=== PATIENT | female | born 1985 | race Caucasian/White ===

== ENCOUNTER 2016-12-27 09:44 | Emergency (ER) | payer BC ==
--- NOTE | 2016-12-27 11:09 | UC ---
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 HAS CONTINUED TO GO TO THE GYM AND WORK. PAIN IS PERSISTENT. DENIES NUMBNESS, TINGLING OR SADDLE ANESTHESIA. NO LOSS OF BOWEL OR BLADDER CONTROL. 800 MG IBUPROFEN, TYLENOL, ICY HOT NOT HELPING. - History of Current Complaint Chief Complaint: UCBackPain Stated Complaint: LOWER BACK INJURY Time Seen by Provider: 12/27/16 10:56 Hx Obtained From: Patient Hx Last Menstrual Period: 12/13/16 Onset/Duration: Sudden Onset, Lasting Days, Still Present Timing: Constant Severity Initially: Moderate Severity Currently: Moderate Pain Intensity: 9 Pain Scale Used: 0-10 Numeric Back Pain: Is Discrete @ - LOW BACK Character: Sharp, Aching Aggravating: Movement, Bending Alleviating: Rest Associated Signs And Symptoms: Negative: Swelling, Redness, Bruising, Fever, Numbness, Tingling, Abdominal Pain, Flank Pain, Bladder Incontinence, Bowel Incontinence - Allergies/Home Medications Allergies/Adverse Reactions: Allergies Allergy/AdvReac Type Severity Reaction Status Date / Time No Known Allergies Allergy Verified 12/27/16 10:12 Home Medications: Home Medications Norgestimate-Ethinyl Estradiol [Tri-Sprintec 0.18/0.215/0.25 mg-35 Mcg] 1 tab PO DAILY 12/27/16 [History Confirmed 12/27/16] PMH/Surg Hx/FS Hx/Imm Hx Previously Healthy: Yes - Surgical History Surgical History: None Surgery Procedure, Year, and Place: denies - Family History Known Family History: Negative: Hypertension Family History: NON CONTRIBUTORY - Social History Alcohol Use: Occasionally Substance Use Type: None Smoking Status (MU): Never Smoked Tobacco - Immunization History Most Recent Influenza Vaccination: 2014 Most Recent Tetanus Shot: UTD Review of Systems Constitutional: Negative Skin: Negative Respiratory: Negative Cardiovascular: Negative Gastrointestinal: Negative Musculoskeletal: Arthralgia, Decreased ROM, Myalgia All Other Systems Reviewed And Are Negative: Yes Physical Exam Triage Information Reviewed: Yes Appearance: Well-Appearing, No Pain Distress, Well-Nourished Vital Signs: Initial Vital Signs Temp 98.0 F 12/27/16 10:08 Pulse 78 12/27/16 10:08 Resp 16 12/27/16 10:08 BP 157/65 12/27/16 10:08 Pulse Ox 100 12/27/16 10:08 Vital Signs Reviewed: Yes Eyes: Positive: Conjunctiva Clear ENT: Positive: Hearing grossly normal Neck: Positive: Supple Respiratory: Positive: No respiratory distress, No accessory muscle use Cardiovascular: Positive: Pulses Normal Abdomen Description: Positive: Soft Musculoskeletal: Positive: No Edema, ROM Limited @ - BACK Neurological: Positive: Alert Psychological: Positive: Age Appropriate Behavior Skin: Negative: rashes Back Pain Course/Dx - Differential Dx/Diagnosis Provider Diagnoses: ACUTE LOW BACK STRAIN Discharge - Discharge Plan Condition: Stable Disposition: HOME Prescriptions: Cyclobenzaprine TAB* [Flexeril TAB*] 10 mg PO BID PRN #30 tab PRN Reason: Pain Hydrocodone-Acetaminophen [Lorcet 5-325 mg] 1 tab PO QID PRN #20 tab MDD 4 PRN Reason: Pain Meloxicam [Mobic] 7.5 mg PO BID PRN #30 tab PRN Reason: Pain predniSONE TAB* [Deltasone TAB*] 40 mg PO DAILY #10 tab Patient Education Materials: Low Back Strain (ED) Referrals: Simba Reyes MD [Primary Care Provider] - If Needed Additional Instructions: BE SURE TO GO THROUGH SLOW RANGE OF MOTION AND STRETCHING EXERCISES DAILY YOU ARE ABLE TO PREVENT STIFFENING UP AND MAKING THE DISCOMFORT WORSE.
== END 2016-12-27 11:20 | disposition home or self-care (01) ==
LOC: UCEAST 09:44
DX: S39.012A Strain of muscle, fascia and tendon of lower back, initial encounter (principal); X50.0XXA Overexertion from strenuous movement or load, initial encounter; Y93.E2 Activity, laundry; Y92.019 Unspecified place in single-family (private) house as the place of occurrence of the external cause; Y99.9 Unspecified external cause status
CPT/HCPCS: 99212; G0463

== ENCOUNTER → 2017-08-31 08:33 | Emergency (ER) | payer BC ==
[2017-08-31 08:44] VITALS: BP 127/83
--- NOTE | 2017-08-31 09:11 | UC ---
Complaint Female HPI - HPI Summary HPI Summary: 31 yo female has not felt right ("down there") for about a month was treated for a UTI a month ago with a three day coarse of antibotics since then has had mild dyspareunia had a bit diarrhea and nausea last week now with right sided pelvic pain x 3 days no vag d/c or itch no f/c no back pain mild intermittent dysuria pain is mild no increased pain with jumping/walking/movement - History Of Current Complaint Chief Complaint: UCAbdominalPain Stated Complaint: LOWER PELVIC PAIN Time Seen by Provider: 08/31/17 09:03 Hx Obtained From: Patient Hx Last Menstrual Period: 08/24/17 Onset/Duration: Gradual Onset, Lasting Days Timing: Constant Severity Initially: Mild Severity Currently: Mild Pain Intensity: 3 Pain Scale Used: 0-10 Numeric Character: Dull Aggravating Factor(s): [place] Alleviating Factor(s): Nothing Associated Signs And Symptoms: Negative: Fever, Back Pain, Vaginal Bleeding/ Discharge, Vaginal Discharge, Nausea, Vomiting(# Of Episodes =), Genital Swelling, Genital Blisters, Retained Foregin Body (Specify) - Allergies/Home Medications Allergies/Adverse Reactions: Allergies Allergy/AdvReac Type Severity Reaction Status Date / Time No Known Allergies Allergy Verified 08/31/17 08:39 Home Medications: Home Medications Norgestimate-Ethinyl Estradiol [Tri-Sprintec Tablet] 1 tab PO DAILY 08/31/17 [ History Confirmed 08/31/17] PMH/Surg Hx/FS Hx/Imm Hx Previously Healthy: Yes - Surgical History Surgical History: None Surgery Procedure, Year, and Place: denies - Family History Known Family History: Negative: Hypertension Family History: NON CONTRIBUTORY - Social History Alcohol Use: Occasionally Substance Use Type: None Smoking Status (MU): Never Smoked Tobacco - Immunization History Most Recent Influenza Vaccination: 2014 Most Recent Tetanus Shot: UTD Review of Systems Constitutional: Negative Skin: Negative Eyes: Negative ENT: Negative Respiratory: Negative Cardiovascular: Negative Gastrointestinal: Negative Genitourinary: Other - right pelvic pain Motor: Negative Neurovascular: Negative Musculoskeletal: Negative Neurological: Negative Psychological: Negative Is Patient Immunocompromised?: No All Other Systems Reviewed And Are Negative: Yes Physical Exam Triage Information Reviewed: Yes Appearance: Well-Appearing, No Pain Distress, Well-Nourished Vital Signs: Initial Vital Signs Temp 97.6 F 08/31/17 08:41 Pulse 78 08/31/17 08:41 Resp 16 08/31/17 08:41 BP 127/83 08/31/17 08:41 Pulse Ox 100 08/31/17 08:41 Eye Exam: Normal ENT: Positive: Normal ENT inspection, Hearing grossly normal, Pharynx normal. Negative: Nasal drainage, TMs normal, TM bulging, Sinus tenderness, Uvula midline Neck: Positive: Supple, Nontender, No Lymphadenopathy Respiratory: Positive: Lungs clear, Normal breath sounds, No respiratory distress, No accessory muscle use Cardiovascular: Positive: RRR, No Murmur Abdomen Description: Positive: Nontender, No Organomegaly, Soft. Negative: CVA Tenderness (R), CVA Tenderness (L), Distended, Guarding, Hernia @, Hepatomegaly , McBurney's Point Tenderness, Peritoneal Signs, Pulsatile Mass, Splenomegaly Musculoskeletal: Positive: ROM Intact, No Edema Neurological: Positive: Alert Psychological Exam: Normal Skin Exam: Normal Diagnostics - Radiology No standard instances Xray Interpretation: No Acute Changes Radiology Interpretation Completed By: Radiologist Complaint Female Dx - Course Course Of Treatment: speculum exam: ext gent- no lesions. vagina- mild to moderate whitish D/C. cx- no CMT. adenexa- tender right. uterus- non tender - Differential Dx/Diagnosis Provider Diagnoses: right sided pelvic pain of uncertain cause Discharge - Discharge Plan Condition: Stable Disposition: HOME Patient Education Materials: Pelvic Pain (ED) Referrals: Marleni Wills MD [Medical Doctor] - If Needed Additional Instructions: various tests are pending including a urine culture and tests on you vaginal swabs I an unsure of the cause of your pain I suggest that if it worsens you go to the ER -increased pain -fever -vomiting recheck later this week if not better -here [facility]
--- NOTE | 2017-08-31 10:35 | RAD ---
Indication: RIGHT side pelvic pain for 5 days. Comparison: No relevant prior exams available on the [facility] for comparison. Technique: Transvaginal pelvic ultrasound. Report: 8.1 x 3.5 x 3.7 cm anteverted uterus with 5 mm endometrium. Trace fluid in the endocervical canal. No appreciable free pelvic fluid evident. 2.1 x 1.1 x 1.9 cm RIGHT ovary with documented vascular flow is unremarkable. 2.0 x 1.1 x 0.9 cm LEFT ovary with documented vascular flow is unremarkable. No visualized extra ovarian adnexal region lesions evident. IMPRESSION: Negative pelvic ultrasound.
== END | disposition home or self-care (01) ==
LOC: UCEAST 08:33
DX: R10.2 Pelvic and perineal pain (principal); R30.0 Dysuria; Z32.02 Encounter for pregnancy test, result negative; Z87.440 Personal history of urinary (tract) infections
CPT/HCPCS: 76830; 81003; 81025; 87086; 87480; 87491; 87510; 87591; 87661; 99211; G0463

== ENCOUNTER 2017-09-26 07:04 | Emergency (ER) | payer BC ==
[2017-09-26 07:31] VITALS: BP 139/86
--- NOTE | 2017-09-26 08:56 | RAD ---
HISTORY: Abdominal pain COMPARISONS: None VIEWS: Frontal views of the abdomen. FINDINGS: BOWEL: There is a nonobstructive bowel gas pattern. There is a large amount stool within the proximal and distal colon. CALCULI: There are no abnormal calculi. BONES AND SOFT TISSUES: There are no osseous abnormalities. OTHER FINDINGS: The lung bases are clear. There is no subphrenic gas. Metallic jewelry is noted overlying the mid abdomen. IMPRESSION: NONOBSTRUCTIVE BOWEL GAS PATTERN.
--- NOTE | 2017-09-26 10:00 | UC ---
Lauri Dominguez Jennifer, scribed for Rayne Uriarte DO on 09/26/17 at 0810 . Complaint Female HPI - HPI Summary HPI Summary: The pt is a 32 y/o female who complains of pelvic pain that radiates to her right abdomen and both sides of her back since one month ago. Pt reports she was at Urgent Care for pelvic pain one month ago but the transvaginal ultrasound was negative. The pain persisted and never resolved. Pt reports she had a UTI a few days ago and wonders if this is a kidney infection. The pain is rated a 4/10 and is described as a dull, jabbing pain. Sitting and standing aggravate the pain, but she does not notice it when she is walking or lying down. She additionally complains of dysuria, increased frequency of urination, intermittent diarrhea, feeling gassy, and nausea. Pt denies fevers, blood in the stool, discharge, chest pain, shortness of breath, and recent weight loss. - History Of Current Complaint Chief Complaint: UCGU Stated Complaint: BACK PAIN, FREQUENT URINATION Time Seen by Provider: 09/26/17 07:10 Hx Obtained From: Patient Hx Last Menstrual Period: 1 WEEK AGO - IS ON CONTROL PILLS Onset/Duration: Gradual Onset, Still Present, Other - Constant pain for one month Timing: Constant Severity Initially: Moderate Severity Currently: Moderate Pain Intensity: 4 Pain Scale Used: 0-10 Numeric Character: Dull Aggravating Factor(s): Other - Sitting, standing Alleviating Factor(s): Other - walking, lying down Associated Signs And Symptoms: Positive: Back Pain, Nausea. Negative: Fever, Vaginal Discharge - Allergies/Home Medications Allergies/Adverse Reactions: Allergies Allergy/AdvReac Type Severity Reaction Status Date / Time No Known Allergies Allergy Verified 09/26/17 07:22 PMH/Surg Hx/FS Hx/Imm Hx Previously Healthy: Yes - NEG: HTN, DM - Surgical History Surgical History: None Surgery Procedure, Year, and Place: denies - Family History Known Family History: Positive: Cardiac Disease - Father of heart attack Negative: Hypertension Family History: NON CONTRIBUTORY - Social History Alcohol Use: Occasionally Substance Use Type: None Smoking Status (MU): Never Smoked Tobacco - Immunization History Most Recent Influenza Vaccination: 2014 Most Recent Tetanus Shot: UTD Review of Systems Constitutional: Negative - Fever Respiratory: Negative - shortness of breath Cardiovascular: Negative - Chest pain Gastrointestinal: Abdominal Pain, Diarrhea - Intermittent, Nausea, Other - Feeling gassy Genitourinary: Negative - Vaginal discharge, blood in stool, Dysuria, Frequency Musculoskeletal: Other: - Back pain All Other Systems Reviewed And Are Negative: Yes Physical Exam - Summary Physical Exam Summary: Appearance: Well-Appearing, No Pain Distress, Well-Nourished Eyes: conjunctiva clear, no discharge ENT: Hearing grossly normal, no muffled/hoarse voice. Neck: Normal, Supple Respiratory/Lung Sounds: Lungs clear, Normal breath sounds, No respiratory distress, No accessory muscle use Cardiovascular: RRR, No murmur Abdomen: minimal tenderness in RUQ, mild tenderness in LLQ and suprapubic region , RLQ was palpated extensively with no tenderness. Soft, no guarding, not distended Bowel Sounds: Present Musculoskeletal: Normal Neurological: Alert, muscle tone normal Psychiatric:Normal, age appropriate behavior Skin: Normal, Warm, Dry, Normal color Triage Information Reviewed: Yes Vital Signs: Initial Vital Signs Temp 98.6 F 09/26/17 07:23 Pulse 80 09/26/17 07:23 Resp 16 09/26/17 07:23 BP 139/86 09/26/17 07:23 Pulse Ox 100 09/26/17 07:23 Vital Signs Reviewed: Yes Diagnostics - Radiology Abd XR Xray Interpretation: No Acute Changes - NONOBSTRUCTIVE BOWEL GAS PATTERN. Dr. Uriarte has reviewed this report. Radiology Interpretation Completed By: Radiologist Complaint Female Dx - Course Course Of Treatment: Patient will be discharged with prescription for Macrodantin and follow up from PCP. The patient is agreeable with this plan. Medications reviewed. High blood pressure noted. - Differential Dx/Diagnosis Provider Diagnoses: Elevated blood pressure without diagnosis of hypertension, Constipation, Diarrhea Discharge - Discharge Plan Condition: Stable Disposition: HOME Prescriptions: Nitrofurantoin Macrocrystals* [Macrodantin*] 100 mg PO BID #10 cap Patient Education Materials: Constipation (DC), Dysuria (ED) [place] [facility] [place] [facility] [place]] Additional Instructions: WE ARE NOT SURE WHETHER OR NOT YOU HAVE AN INFECTION. THE URINE DIP DONE HERE IN THE CLINIC DID NOT REVEAL EVIDENCE OF INFECTION. HOWEVER, WE ARE GOING TO GO AHEAD AND START TO TREAT YOU FOR A UTI BECAUSE YOU HAVE PAIN WITH URINATION BECAUSE YOU HAVE SOME PAIN WITH URINATION. WE ARE SENDING YOUR URINE FOR MICROSCOPY AND CULTURE TO GET A DEFINITIVE ANSWER. PLEASE CALL BACK AND CHECK ON THESE RESULTS. IF THESE TESTS RULE OUT INFECTION. STOP TAKE THE ANTIBIOTIC. NITROFURANTOIN: You have received a prescription for nitrofurantoin (Macrodantin). This antibiotic is used for urinary tract infections. Persons with G-6-PD (glucose 6-phosphate dehydrogenase) deficiency should not take this medication. Women who are or nursing should notify the physician before taking this medicine. If you have ever had a problem caused by this medication in the past, be sure the physician is aware of it. Common side effects of this medicine include nausea, vomiting, or decreased appetite. Notify your physician if these side effects become severe. Immediately stop this medicine and call the physician if you develop cough , shortness of breath, chest pain, weakness, jaundice (yellow color of the skin and whites of the eyes), or a skin rash. ANYTIME YOU TAKE AN ANTIBIOTIC, IT IS IMPORTANT TO REPLENISH THE BODY'S SUPPLY OF "GOOD BACTERIA." YOU CAN GET GOOD BACTERIA FROM HIGH QUALITY CULTURED FOODS SUCH LOCAL YOGURT, SOUR KRAUT, REGINA HUGH, NATURALLY FERMENTED PICKLES AND PROBIOTIC DRINKS. YOU CAN ALSO GET GOOD BACTERIA FROM A PROBIOTIC SUPPLEMENT. The documentation as recorded by the Lauri aranda Jennifer accurately reflects the service I personally performed and the decisions made by me, Rayne Uriarte DO.
[2017-09-26 14:39] LABS: Urine Appearance Clear; Urine Blood Negative (Negative); Urine Color Yellow; Urine Ketones Negative (Negative); Urine Protein Negative (Negative); Urine Specific Gravity 1.015 (1.010-1.030); Urine Urobilinogen Negative (Negative)
--- NOTE | 2017-09-28 10:39 | UC ---
- Progress Note Progress Note: please call this pt and let her know that here urine cx was neg. no uti. ok to stop abx.
== END 2017-09-26 09:30 | disposition home or self-care (01) ==
LOC: UCEAST 07:04
DX: K59.00 Constipation, unspecified (principal); R19.7 Diarrhea, unspecified; R03.0 Elevated blood-pressure reading, without diagnosis of hypertension; R30.0 Dysuria; R35.0 Frequency of micturition; R11.0 Nausea; Z87.440 Personal history of urinary (tract) infections; Z32.02 Encounter for pregnancy test, result negative
CPT/HCPCS: 74018; 81003; 84702; 87086; 99212; G0463

== ENCOUNTER 2018-05-17 07:33 | Emergency (ER) | payer BC ==
[2018-05-17 07:50] VITALS: BP 144/89
--- NOTE | 2018-05-17 08:12 | UC ---
Complaint Female HPI - HPI Summary HPI Summary: 32-year-old woman comes to clinic today with a chief complaint of dysuria. Started about a week ago. [facility] ago and was told she has UTI and was started on Bactrim. The symptoms have not gotten any better. She has been taking Pyridium which decreased the symptoms however she stopped because he wanted to make sure she knew if the urinary tract infection with away or not. No fevers or chills. She has urgency and frequency. Some suprapubic discomfort no flank pain. She does get vaginal yeast infection since she feels like she has one now. She denies any STI's and was recently checked at [facility] for STI's. - History Of Current Complaint Chief Complaint: UCGU Stated Complaint: UTI Time Seen by Provider: 05/17/18 07:57 Hx Last Menstrual Period: 04/29/18 Pain Intensity: 5 - Allergies/Home Medications Allergies/Adverse Reactions: Allergies Allergy/AdvReac Type Severity Reaction Status Date / Time No Known Allergies Allergy Verified 05/17/18 07:50 Home Medications: Home Medications Sulfamethox/Trimethoprim DS* [Bactrim DS 800/160 TAB*] 1 tab PO BID 05/17/18 [ History Confirmed 05/17/18] PMH/Surg Hx/FS Hx/Imm Hx Previously Healthy: Yes - Surgical History Surgical History: None Surgery Procedure, Year, and Place: denies - Family History Known Family History: Positive: Cardiac Disease - Father of heart attack Negative: Hypertension, Diabetes Family History: NON CONTRIBUTORY - Social History Alcohol Use: Occasionally Substance Use Type: None Smoking Status (MU): Never Smoked Tobacco - Immunization History Most Recent Influenza Vaccination: 2014 Most Recent Tetanus Shot: UTD Review of Systems Constitutional: Negative Skin: Negative Eyes: Negative ENT: Negative Respiratory: Negative Cardiovascular: Negative Gastrointestinal: Negative Genitourinary: Dysuria, Frequency, Urgency, Vaginal/Penile Discharge Motor: Negative Neurovascular: Negative Musculoskeletal: Negative Neurological: Negative Psychological: Negative Is Patient Immunocompromised?: No All Other Systems Reviewed And Are Negative: Yes Physical Exam Triage Information Reviewed: Yes Appearance: Well-Appearing, No Pain Distress, Well-Nourished Vital Signs: Initial Vital Signs Temp 99 F 05/17/18 07:43 Pulse 68 05/17/18 07:43 Resp 18 05/17/18 07:43 BP 144/89 10/29/18 07:43 Pulse Ox 100 05/17/18 07:43 Vital Signs Reviewed: Yes Eye Exam: Normal Eyes: Positive: Conjunctiva Clear ENT: Negative: Nasal congestion Neck exam: Normal Neck: Positive: Supple Respiratory Exam: Normal Respiratory: Positive: Lungs clear, Normal breath sounds, No respiratory distress Cardiovascular: Positive: RRR Abdomen Description: Positive: Nontender, Soft. Negative: CVA Tenderness (R), CVA Tenderness (L) Bowel Sounds: Positive: Present Musculoskeletal Exam: Normal Musculoskeletal: Positive: Strength Intact, ROM Intact Neurological Exam: Normal Neurological: Positive: Alert, Muscle Tone Normal Psychological Exam: Normal Psychological: Positive: Age Appropriate Behavior Skin Exam: Normal Complaint Female Dx - Course Course Of Treatment: The UA showed some leukocytes. Different possibilities include the back daily for the UTI is resistant to Bactrim versus the symptoms are due to vaginal yeast infection or a combination of both. The plan is to switch to Keflex and also treat with Diflucan. Get rechecked if not improved. Also urine will go to culture today. Patient recently was checked for STI's and does not have any concerns of STI's therefore no pelvic was done today. - Differential Dx/Diagnosis Provider Diagnoses: UTI. VAGINITIS Discharge - Sign-Out/Discharge Documenting (check all that apply): Patient Departure All imaging exams completed and their final reports reviewed: No Studies - Discharge Plan Condition: Stable Disposition: HOME Prescriptions: Cephalexin CAP* [Keflex CAP*] 500 mg PO TID #21 cap Fluconazole [Diflucan 150 MG (NF)] 150 mg PO ONCE #2 tab Patient Education Materials: Urinary Tract Infection in Women (ED), Yeast Infection (ED) Referrals: [facility] [place] [facility] [Outside] Additional Instructions: FOLLOW UP WITH YOUR DOCTOR IF NOT COMPLETELY IMPROVED. GET RECHECKED FOR ANY WORSENING OF YOUR CONDITION OR QUESTIONS OR CONCERNS. - Billing Disposition and Condition Condition: STABLE Disposition: Home
--- NOTE | 2018-05-18 10:13 | UC ---
- Progress Note Progress Note: Pt called and said that she is having diarrhea from the Keflex. According to the office note, [facility] which did not resolve with B[facility]rim and was then switched to Keflex at her visit at under the assumption that her UTI may have been resistant to Bactrim. Given her antibiotic use over the last week - this could be why her urine culture is negative, but she is still having symptoms. Will switch her to Cipro BID for 5 days. STOP keflex. If her symptoms do not improve - will need to follow up. Please advise to take an OTC probiotic to reduce diarrhea. Discharge - Sign-Out/Discharge Documenting (check all that apply): Patient Departure All imaging exams completed and their final reports reviewed: No Studies - Discharge Plan Condition: Stable Disposition: HOME Prescriptions: Ciprofloxacin TAB* [Cipro 250 MG Tab*] 250 mg PO BID #10 tab Fluconazole [Diflucan 150 MG (NF)] 150 mg PO ONCE #2 tab Patient Education Materials: Urinary Tract Infection in Women (ED), Yeast Infection (ED) Referrals: [facility] [place] [facility] [Outside] Additional Instructions: FOLLOW UP WITH YOUR DOCTOR IF NOT COMPLETELY IMPROVED. GET RECHECKED FOR ANY WORSENING OF YOUR CONDITION OR QUESTIONS OR CONCERNS. - Billing Disposition and Condition Condition: STABLE Disposition: Home
--- NOTE | 2018-05-18 16:39 | UC ---
- Progress Note Progress Note: reviewed urine culture no change ljj 05/18/2018 Discharge - Sign-Out/Discharge Documenting (check all that apply): Post-Discharge Follow Up All imaging exams completed and their final reports reviewed: No Studies - Discharge Plan Condition: Stable Disposition: HOME Prescriptions: Ciprofloxacin TAB* [Cipro 250 MG Tab*] 250 mg PO BID #10 tab Fluconazole [Diflucan 150 MG (NF)] 150 mg PO ONCE #2 tab Patient Education Materials: Urinary Tract Infection in Women (ED), Yeast Infection (ED) Referrals: [facility] [place] [facility] [Outside] Additional Instructions: FOLLOW UP WITH YOUR DOCTOR IF NOT COMPLETELY IMPROVED. GET RECHECKED FOR ANY WORSENING OF YOUR CONDITION OR QUESTIONS OR CONCERNS. - Billing Disposition and Condition Condition: STABLE Disposition: Home
== END 2018-05-17 08:15 | disposition home or self-care (01) ==
LOC: UCEAST 07:33
DX: N39.0 Urinary tract infection, site not specified (principal); N76.0 Acute vaginitis
CPT/HCPCS: 81003; 84702; 87086; 99212; G0463

== ENCOUNTER 2018-05-29 08:59 | Emergency (ER) | payer BC ==
[2018-05-29 09:09] VITALS: BP 128/84
--- NOTE | 2018-05-29 10:12 | UC ---
Complaint Female HPI - HPI Summary HPI Summary: 32 year old female is here with a chief complaint of dysuria. This all started couple weeks ago. [facility] where [facility] reported she [facility] examination told that she had a urinary tract infection and started her on Bactrim. She is not improving and she came here to clinic and a urine culture was obtained and the patient was started on Keflex and Diflucan. The urine culture came back with no growth. She did get some diarrhea the Keflex was prescribed Cipro but she preferred to not take the Cipro and just continued and finished the Keflex. Dysuria is still continuing. Patient denies any vaginal discharge. She has not had intercourse since the pain started. She is having some bilateral lower anterior abdominal discomfort and also bilateral flank pain. Overnight she has some chills but no measured fevers. She is on her period right now. - History Of Current Complaint Chief Complaint: UCGU Stated Complaint: PAIN/FREQUENCY WITH MICTURITION Time Seen by Provider: 05/29/18 09:46 Hx Last Menstrual Period: 05/27/18 Pain Intensity: 3 - Allergies/Home Medications Allergies/Adverse Reactions: Allergies Allergy/AdvReac Type Severity Reaction Status Date / Time No Known Allergies Allergy Verified 05/29/18 09:09 PMH/Surg Hx/FS Hx/Imm Hx Previously Healthy: Yes - Surgical History Surgical History: None Surgery Procedure, Year, and Place: denies - Family History Known Family History: Positive: Cardiac Disease - Father of heart attack Negative: Hypertension, Diabetes Family History: NON CONTRIBUTORY - Social History Alcohol Use: Occasionally Substance Use Type: None Smoking Status (MU): Never Smoked Tobacco - Immunization History Most Recent Influenza Vaccination: 2014 Most Recent Tetanus Shot: UTD Review of Systems All Other Systems Reviewed And Are Negative: Yes Constitutional: Positive: Negative Skin: Positive: Negative Eyes: Positive: Negative ENT: Positive: Negative Respiratory: Positive: Negative Cardiovascular: Positive: Negative Gastrointestinal: Positive: Abdominal Pain Genitourinary: Positive: Dysuria, Frequency, Urgency Motor: Positive: Negative Neurovascular: Positive: Negative Musculoskeletal: Positive: Negative Neurological: Positive: Negative Psychological: Positive: Negative Is Patient Immunocompromised?: No Physical Exam Triage Information Reviewed: Yes Appearance: Well-Appearing, No Pain Distress, Well-Nourished Vital Signs: Initial Vital Signs Temp 98.5 F 05/29/18 09:06 Pulse 75 05/29/18 09:06 Resp 16 05/29/18 09:06 BP 128/84 05/29/18 09:06 Pulse Ox 100 05/29/18 09:06 Vital Signs Reviewed: Yes Eye Exam: Normal Eyes: Positive: Conjunctiva Clear Neck exam: Normal Neck: Positive: Supple Respiratory Exam: Normal Respiratory: Positive: Lungs clear, Normal breath sounds, No respiratory distress Cardiovascular Exam: Normal Cardiovascular: Positive: RRR Abdomen Description: Positive: CVA Tenderness (R) - MILD, CVA Tenderness (L) - MILD, Other: - Mild tenderness to palpation right lower quadrant and left lower quadrant there is no tenderness suprapubic. No rebound Bowel Sounds: Positive: Present Pelvic Exam: Positive: External Exam Normal, Bimanual Exam Normal, No Cerv. Motion Tender, No Masses, Active Bleeding - patient on menses, Other - TTP over suprapubic theodora, 2 small petechia noted on cervix ~ 2, 4 region no strawberry cervix, not friable. Negative: Cervicitis, Discharge, Lesions, Mass, Tender w/ Cervical Motion, Tender Adnexa, Tender Uterus Musculoskeletal Exam: Normal Musculoskeletal: Positive: Strength Intact, ROM Intact Neurological Exam: Normal Neurological: Positive: Alert, Muscle Tone Normal Psychological Exam: Normal Psychological: Positive: Age Appropriate Behavior Skin Exam: Normal Complaint Female Dx - Course Course Of Treatment: The patient is well appearing the pain is mild. We discussed going to the emergency department where they can do imaging and blood work right away. We do not have ultrasound or CT here today clinic. Patient prefers not to go to the emergency department. The plan is to do a pelvic exam here in clinic and send for vaginal infections and also repeat the urine with urine culture. We will also do lab work CBC CMP and CRP. If we find a treatable answer we will treat as indicated. If the patient is not improved or worse she indicated she like to come back when we do have ultrasound and CT. At that time will need to determine if CT to look for kidney stone on ultrasound to look for uterine cause of the pain is indicated. Patient does go the emergency department if her condition worsens. She does not have a primary care physician at this time and it would be good for her to get a primary care physician for follow-up. - Differential Dx/Diagnosis Provider Diagnoses: DYSURIA Discharge - Sign-Out/Discharge Documenting (check all that apply): Patient Departure All imaging exams completed and their final reports reviewed: No Studies - Discharge Plan Condition: Stable Disposition: HOME Patient Education Materials: Dysuria (ED) Referrals: Simba Reyes MD [Primary Care Provider] - Additional Instructions: FOLLOW UP WITH YOUR DOCTOR. GO TO THE EMERGENCY DEPARTMENT FOR ANY WORSENING OF YOUR CONDITION; PAIN, FEVER , YOU FEEL ILL OR QUESTIONS OR CONCERNS. - Billing Disposition and Condition Condition: STABLE Disposition: Home
[2018-05-29 15:01] LABS: ABS Basophils 0.1 10^3/ul (0-0.2); ABS Eosinophils 0.1 10^3/ul (0-0.6); ABS Lymphocytes 1.9 10^3/ul (1.0-4.8); ABS Monocytes 0.6 10^3/ul (0-0.8); ABS Neutrophils 4.8 10^3/ul (1.5-7.7); ABS Nucleated RBC 0 10^3/ul; Eosinophil % 1.8 % (0-6); Hematocrit 42 % (35-47); Hemoglobin 13.9 g/dl (12.0-16.0); Lymphocyte % 24.9 % (25-47); Mean Corpuscular HGB Conc 33 g/dl (31-36); Mean Corpuscular Hemoglobin 31 pg (27-31); Mean Corpuscular Volume 92 fL (80-97); Mean Platelet Volume 7.9 fL (7.4-10.4); Nucleated Red Blood Cells % 0.1; Platelet Count 311 10^3/ul (150-450); Red Blood Count 4.55 10^6/ul (4.00-5.40); Red Cell Distribution Width 14 % (10.5-15); White Blood Count 7.5 10^3/ul (3.5-10.8)
== END 2018-05-29 10:43 | disposition home or self-care (01) ==
LOC: UCEAST 08:59
DX: R30.0 Dysuria (principal); R10.9 Unspecified abdominal pain; R35.0 Frequency of micturition; R39.15 Urgency of urination
CPT/HCPCS: 36415; 80053; 81003; 84702; 85025; 86140; 87086; 87480; 87491; 87510; 87591; 99212; G0463

== ENCOUNTER 2018-05-31 07:06 | Emergency (ER) | payer BC ==
[2018-05-31 07:20] VITALS: BP 137/89
--- NOTE | 2018-05-31 07:40 | UC ---
Complaint Female HPI - HPI Summary HPI Summary: The patient is a 32-year-old female that has had dysuria urgency and frequency for approximately 3 weeks. She has been seen on multiple occasions both here and at [facility]. Her urine cultures have been negative. She has had pelvic exams performed and no cause for her dysuria has been found. He was seen here over the weekend and told to come here for imaging this morning. He denies any fever or chills. She denies any vaginal discharge or itch. Denies any back pain or abdominal pain. - History Of Current Complaint Chief Complaint: UCGU Stated Complaint: PAIN W/ MICTURITION Time Seen by Provider: 05/31/18 07:16 Hx Obtained From: Patient Hx Last Menstrual Period: 05/27/18 Timing: Intermittent, Lasting Minutes Severity Initially: Mild Severity Currently: None Pain Intensity: 0 - pain only with urination Pain Scale Used: 0-10 Numeric Character: Burning Aggravating Factor(s): Urination Alleviating Factor(s): Nothing Associated Signs And Symptoms: Negative: Fever, Back Pain, Vaginal Bleeding/ Discharge, Vaginal Discharge, Nausea, Vomiting(# Of Episodes =), Genital Swelling, Genital Blisters, Retained Foregin Body (Specify) Related Hx: Similar Episode/Dx as: - had [place] UTI - Allergies/Home Medications Allergies/Adverse Reactions: Allergies Allergy/AdvReac Type Severity Reaction Status Date / Time No Known Allergies Allergy Verified 05/31/18 07:20 PMH/Surg Hx/FS Hx/Imm Hx Previously Healthy: Yes - Surgical History Surgical History: None Surgery Procedure, Year, and Place: denies - Family History Known Family History: Positive: Cardiac Disease - Father of heart attack Negative: Hypertension, Diabetes Family History: NON CONTRIBUTORY - Social History Alcohol Use: Occasionally Substance Use Type: None Smoking Status (MU): Never Smoked Tobacco - Immunization History Most Recent Influenza Vaccination: 2014 Most Recent Tetanus Shot: UTD Review of Systems All Other Systems Reviewed And Are Negative: Yes Constitutional: Positive: Negative Skin: Positive: Negative Eyes: Positive: Negative ENT: Positive: Negative Respiratory: Positive: Negative Cardiovascular: Positive: Negative Gastrointestinal: Positive: Negative Genitourinary: Positive: Dysuria Motor: Positive: Negative Neurovascular: Positive: Negative Musculoskeletal: Positive: Negative Neurological: Positive: Negative Psychological: Positive: Negative Physical Exam Triage Information Reviewed: Yes Appearance: Well-Appearing, No Pain Distress, Well-Nourished Vital Signs: Initial Vital Signs Temp 98.4 F 05/31/18 07:14 Pulse 69 05/31/18 07:14 Resp 18 05/31/18 07:14 BP 137/89 05/31/18 07:14 Pulse Ox 98 05/31/18 07:14 Vital Signs Reviewed: Yes Eyes: Positive: Conjunctiva Clear ENT: Positive: Hearing grossly normal. Negative: Nasal congestion, Nasal drainage, Trismus, Muffled voice, Hoarse voice, Sinus tenderness, Uvula midline Neck: Positive: Supple, Nontender, No Lymphadenopathy Respiratory: Positive: Lungs clear, Normal breath sounds, No respiratory distress, No accessory muscle use Cardiovascular: Positive: RRR, No Murmur Abdomen Description: Positive: Nontender, No Organomegaly, Soft. Negative: CVA Tenderness (R), CVA Tenderness (L) Musculoskeletal: Positive: ROM Intact, No Edema Neurological: Positive: Alert Psychological Exam: Normal Skin Exam: Normal Diagnostics - Radiology No standard instances Radiology Interpretation Completed By: Radiologist Summary of Radiographic Findings: normal u/s of bladder Complaint Female Dx - Differential Dx/Diagnosis Provider Diagnoses: dysuria of uncertain cause Discharge - Sign-Out/Discharge Documenting (check all that apply): Patient Departure All imaging exams completed and their final reports reviewed: Yes - Discharge Plan Condition: Stable Disposition: HOME Patient Education Materials: Dysuria (ED) Referrals: Simba Reyes MD [Primary Care Provider] - If Needed Bro Herzog MD [Medical Doctor] - 1 Week Additional Instructions: further urine tests are pending if nothing turns up with those tests I suggest you see a specialist to ER for new or worsening symptoms - Billing Disposition and Condition Condition: STABLE Disposition: Home
--- NOTE | 2018-06-02 17:15 | UC ---
- Progress Note Progress Note: 06/02/2018 Urine Mycoplasm and Ureplasm are negative Pt was Dx w/ dyuria of unknown origen. No change Sandra Vila PA-C Discharge - Sign-Out/Discharge Documenting (check all that apply): Patient Departure - D/c home All imaging exams completed and their final reports reviewed: Yes - Discharge Plan Condition: Stable Disposition: HOME Patient Education Materials: Dysuria (ED) Referrals: Simba Reyes MD [Primary Care Provider] - If Needed Bro Herzog MD [Medical Doctor] - 1 Week Additional Instructions: further urine tests are pending if nothing turns up with those tests I suggest you see a specialist to ER for new or worsening symptoms - Billing Disposition and Condition Condition: STABLE Disposition: Home
== END 2018-05-31 09:23 | disposition home or self-care (01) ==
LOC: UCEAST 07:06
DX: R30.0 Dysuria (principal)
CPT/HCPCS: 76857; 87798; 99211; G0463

== ENCOUNTER 2018-09-03 04:54 | Emergency (ER) | payer BC ==
[2018-09-03 04:58] VITALS: BP 143/86
== END 2018-09-03 06:11 | disposition left against medical advice (07) ==
LOC: ED 04:54
DX: R07.89 Other chest pain (principal); Z53.21 Procedure and treatment not carried out due to patient leaving prior to being seen by health care provider

== ENCOUNTER 2018-09-03 07:10 | Emergency (ER) | payer BC ==
[2018-09-03 07:29] VITALS: BP 151/79
--- NOTE | 2018-09-03 08:15 | UC ---
Palpitation/Dysrhythmia HP - HPI Summary HPI Summary: Patient treated for bronchitis with azithromycin 6-8 weeks ago but states she feels she never fully recovered. Still has intermittent cough and wheeze and sensation of phlegm in her throat. Has throat and upper chest tightness. Denies midsternal/left sided chest pain. The last 2 nights has had some nausea associated with HR in the low 100s. States she had been running earlier in the day but had no sx at that time. Sx lasted less than 2 min then resolved. This morning left arm feels a bit tingly "like I slept on it wrong". - History of Current Complaint Chief Complaint: UCChestPain Stated Complaint: POSS CHEST COLD Time Seen by Provider: 09/03/18 07:17 Hx Obtained From: Patient Hx Last Menstrual Period: 08/19/18 Onset/Duration: Sudden Onset, Lasting Minutes, Resolved Severity Initially: Moderate Severity Currently: Mild Pain Intensity: 3 Pain Scale Used: 0-10 Numeric Character: Fast Aggravating Factor(s): Nothing Alleviating Factor(s): Other - spontaneous resolution Associated Signs & Symptoms: Positive: Nausea. Negative: Dizzy, Syncope, Shortness of Breath - Allergy/Home Medications Allergies/Adverse Reactions: Allergies Allergy/AdvReac Type Severity Reaction Status Date / Time No Known Allergies Allergy Verified 09/03/18 07:30 PMH/Surg Hx/FS Hx/Imm Hx Previously Healthy: Yes - Surgical History Surgical History: None Surgery Procedure, Year, and Place: denies - Family History Known Family History: Positive: Cardiac Disease - Father of heart attack age 45 - alcoholic, smoker Negative: Hypertension, Diabetes - Social History Alcohol Use: Occasionally Substance Use Type: None Smoking Status (MU): Never Smoked Tobacco - Immunization History Most Recent Influenza Vaccination: 2014 Most Recent Tetanus Shot: UTD Review of Systems All Other Systems Reviewed And Are Negative: Yes Constitutional: Positive: Negative Respiratory: Positive: Cough, Other - WHEEZE Cardiovascular: Positive: Palpitations Gastrointestinal: Positive: Nausea Neurological: Positive: Paresthesia Physical Exam Triage Information Reviewed: Yes Appearance: Well-Appearing, No Pain Distress, Well-Nourished Vital Signs: Initial Vital Signs Temp 98.5 F 09/03/18 07:18 Pulse 83 09/03/18 07:18 Resp 18 09/03/18 07:18 BP 151/79 09/03/18 07:18 Pulse Ox 99 09/03/18 07:18 Vital Signs Reviewed: Yes Eyes: Positive: Conjunctiva Clear ENT: Positive: Hearing grossly normal, Pharynx normal, TMs normal Neck: Positive: Supple, Nontender, No Lymphadenopathy Respiratory Exam: Normal Cardiovascular Exam: Normal Abdomen Description: Positive: Soft Musculoskeletal: Positive: No Edema Neurological: Positive: Alert Psychological: Positive: Age Appropriate Behavior Skin: Negative: Rashes Diagnostics - EKG Cardiac Rate: NL Cardiac Rhythm: Sinus: Normal Ectopy: None ST Segment: Normal Palpitations Course/Dx - Course Course Of Treatment: EKG UNREMARKABLE. EXAM UNREMARKABLE. DISCUSSED TRANSFER TO ER FOR EVAL OF PALPITATIONS. PT DECLINES TRANSFER TO ED. ADVISED THAT SHE COULD BE RISKING WORSENING OF HER CONDITION THAT COULD POSE A THREAT TO HER LIFE, HEALTH AND MEDICAL SAFETY. SHE VERBALIZES UNDERSTANDING AND CONTINUES TO DECLINE TRANSFER. WILL CHECK CBC, CMP AND TSH. PT WILL F/U WITH PCP OR CARDIOLOGY NEXT WEEK. - Differential Dx/Diagnosis Provider Diagnosis: Palpitations Discharge - Sign-Out/Discharge Documenting (check all that apply): Patient Departure All imaging exams completed and their final reports reviewed: No Studies - Discharge Plan Condition: Stable Disposition: HOME Prescriptions: Albuterol HFA INHALER* [Ventolin HFA Inhaler*] 2 puff INH Q4H PRN #1 mdi PRN Reason: Shortness Of Breath Inhaler, Assist Devices [Aerochamber Mini] 1 each MC Q4H PRN #1 spacer PRN Reason: Cough predniSONE TAB* [Deltasone 20 MG TAB*] 40 mg PO DAILY #10 tab Patient Education Materials: Heart Palpitations (ED) Referrals: Simba Reyes MD [Primary Care Provider] - 5 Days Harjinder Carr DO [Medical Doctor] - 1 Week Additional Instructions: Your EKG today was unremarkable. Unclear cause of your palpitations. They may be due to your ongoing respiratory issues and anxiety related to this. As we discussed we are unable to do an adequate cardiac evaluation here in the urgent care. You have declined transfer to the emergency room today. Follow-up with your PCP and/or cardiology next week for further evaluation of these symptoms. Labs drawn today include a blood count, complete metabolic panel and thyroid test. Low threshold for going to the emergency room if your symptoms recur. We will treat you for persistent cough and wheeze with an inhaler and prednisone. Please be aware that these medications can also elevate the heart rate so use with caution and stay well-hydrated. Avoid excessive caffeine and be sure to get enough rest. YOU HAVE DECLINED TRANSFER TO THE ED TODAY WITH THE UNDERSTANDING THAT YOUR CONDITION MAY WORSEN LEADING TO RESPIRATORY DISTRESS/FAILURE, CARDIAC ARREST, /DISABILITY. - Billing Disposition and Condition Condition: STABLE Disposition: Home
[2018-09-03 10:50] LABS: ABS Basophils 0 10^3/ul (0-0.2); ABS Eosinophils 0 10^3/ul (0-0.6); ABS Lymphocytes 1.4 10^3/ul (1.0-4.8); ABS Monocytes 0.5 10^3/ul (0-0.8); ABS Neutrophils 6.2 10^3/ul (1.5-7.7); ABS Nucleated RBC 0 10^3/ul; Eosinophil % 0.4 %; Hematocrit 40 % (35-47); Hemoglobin 13.3 g/dl (12.0-16.0); Mean Corpuscular HGB Conc 33 g/dl (31-36); Mean Corpuscular Hemoglobin 31 pg (27-31); Mean Corpuscular Volume 92 fL (80-97); Mean Platelet Volume 8.2 fL (7.4-10.4); Nucleated Red Blood Cells % 0; Platelet Count 273 10^3/ul (150-450); Red Blood Count 4.35 10^6/ul (4.00-5.40); Red Cell Distribution Width 13 % (10.5-15); White Blood Count 8.1 10^3/ul (3.5-10.8)
[2018-09-03 10:57] LABS: Albumin 4.6 g/dL (3.2-5.2); Calcium 9.3 mg/dL (8.6-10.3); Potassium 4.6 mmol/L (3.5-5.0); Total Bilirubin 0.5 mg/dL (0.2-1.0)
[2018-09-03 11:03] LABS: Albumin/Globulin Ratio 2.1 (1-3); BUN/Creatinine Ratio 26.2 (8-20); EGFR African American 139.3 (>60); EGFR Non-African American 115.2 (>60); Globulin 2.2 g/dL (2-4); Total Protein 6.8 g/dL (6.4-8.9)
[2018-09-03 11:18] LABS: TSH (Thyroid Stimulating Horm) 1.2 mcIU/mL (0.34-5.60)
== END 2018-09-03 08:39 | disposition home or self-care (01) ==
LOC: UCEAST 07:10
DX: R00.2 Palpitations (principal); R11.0 Nausea; R05 Cough; R20.2 Paresthesia of skin
CPT/HCPCS: 36415; 80053; 84443; 85025; 99212; G0463

== ENCOUNTER 2018-09-10 10:25 | Emergency (ER) | payer BC ==
--- NOTE | 2018-09-10 11:12 | ED ---
HPI Chest Pain - HPI Summary HPI Summary: Pt is a 32 y/o F presenting to the ED with a chief complaint of chest pain onset about 1 week ago in her sternal area that radiates to the bilateral anterior chest. She reports associated sob, nausea, and dizziness. She states the pain is not worse with position change but the nausea and dizziness does get worse with position change. She notes she had bronchitis 8 weeks ago and a paternal fhx of CT. - History of Current Complaint Chief Complaint: EDChestPainROMI Time Seen by Provider: 09/10/18 10:42 Hx Obtained From: Patient Hx Last Menstrual Period: 08/19/18 Onset/Duration: Started Weeks Ago, Still Present Timing: Constant, Lasting Weeks Initial Severity: Mild Current Severity: Mild Pain Intensity: 3 Pain Scale Used: 0-10 Numeric Chest Pain Location: Upper Sternal, Left Anterior, Right Anterior Chest Pain Radiates: No Character: Tightness Aggravating Factor(s): Exertion Alleviating Factor(s): Nothing Associated Signs and Symptoms: Positive: Chest Pain, Dizziness, Shortness of Breath, Nausea - Allergy/Home Medications Allergies/Adverse Reactions: Allergies Allergy/AdvReac Type Severity Reaction Status Date / Time No Known Allergies Allergy Verified 09/10/18 10:32 Home Medications: Home Medications Albuterol Sulfate [Ventolin Hfa] 2 puff INH Q4H PRN 09/10/18 [History Confirmed 09/10/18] PMH/Surg Hx/FS Hx/Imm Hx Previously Healthy: Yes Endocrine/Hematology History: Denies: Hx Diabetes, Hx Thyroid Disease Cardiovascular History: Denies: Hx Hypertension Respiratory History: Reports: Other Respiratory Problems/Disorders - bronchitis about 8 wks ago Denies: Hx Asthma, Hx Chronic Obstructive Pulmonary Disease (COPD) GI History: Denies: Hx Ulcer History: Denies: Hx Kidney Stones, Hx Renal Disease - Surgical History Surgery Procedure, Year, and Place: denies Infectious Disease History: No Infectious Disease History: Denies: Hx Hepatitis, Hx Human Immunodeficiency Virus (HIV), History Other Infectious Disease, Traveled Outside the [place] in Last 30 Days - Family History Known Family History: Positive: Cardiac Disease - Father of heart attack age 45 - alcoholic, smoker Negative: Hypertension, Diabetes - Social History Alcohol Use: Occasionally Hx Substance Use: No Substance Use Type: Reports: None Hx Tobacco Use: No Smoking Status (MU): Never Smoked Tobacco Review of Systems Negative: Fever Positive: Chest Pain Positive: Shortness Of Breath Positive: Nausea Neurological: Other - dizziness All Other Systems Reviewed And Are Negative: Yes Physical Exam - Summary Physical Exam Summary: Appearance: The patient is well-nourished in no acute distress and in no acute pain. Skin: The skin is warm and dry and skin color reflects adequate perfusion HEENT: The head is normocephalic and atraumatic. The pupils are equal and reactive. The conjunctivae are clear and without drainage. Nares are patent and without drainage. Mouth reveals moist mucous membranes and the throat is without erythema and exudate. The external ears are intact. The ear canals are patent and without drainage. The tympanic membranes are intact. Neck: The neck is supple with full range of motion and non-tender. There are no carotid bruits. There is no neck vein distension. Respiratory: Chest is non-tender. Lungs are clear to auscultation and breath sounds are symmetrical and equal. Cardiovascular: Heart is regular rate and rhythm. There is a systolic ejection murmur. There is no peripheral edema and pulses are symmetrical and equal. Abdomen: The abdomen is soft and non-tender. There are normal bowel sounds heard in all four quadrants and there is no organomegaly palpated. Musculoskeletal: There is no back tenderness noted. Extremities are non-tender with full range of motion. There is good capillary refill. There is no peripheral edema or calf tenderness elicited. Neurological: Patient is alert and oriented to person, place and time. The patient has symmetrical motor strength in all four extremities. Cranial nerves are grossly intact. Deep tendon reflexes are symmetrical and equal in all four extremities. Psychiatric: The patient has an appropriate affect and does not exhibit any anxiety or depression. Triage Information Reviewed: Yes Vital Signs On Initial Exam: Initial Vitals Temp Pulse Resp BP Pulse Ox 98.1 F 83 16 153/88 100 09/10/18 10:26 09/10/18 10:26 09/10/18 10:26 09/10/18 10:26 09/10/18 10:26 Vital Signs Reviewed: Yes Diagnostics - Vital Signs Vital Signs Temp Pulse Resp BP Pulse Ox 09/10/18 11:01 91 19 100 09/10/18 10:40 87 17 148/86 100 09/10/18 10:26 98.1 F 83 16 153/88 100 - Laboratory Result Diagrams: 09/10/18 11:28 09/10/18 11:28 Lab Statement: Any lab studies that have been ordered have been reviewed, and results considered in the medical decision making process. - EKG 1038 Cardiac Rate: NL - 84bpm EKG Rhythm: Sinus Rhythm ST Segment: Normal Ectopy: None Chest Pain Course/Dx - Course Course Of Treatment: Ms. Crowley presented with symptoms of a tight feeling in her chest and shortness of breath for over a week now. She initially had a bronchitis and then developed the symptoms and was seen at the [facility]. She was treated with albuterol inhaler and steroids which she states does not help her. She was recommended that she get a echocardiogram. She set up an appointment with her PCP Dr. Reyes but didn't keep that appointment and went to the emergency department last Thursday. She was worked up for cardiac etiology with troponins and also a d-dimer at that point and was discharged to get the outpatient echocardiogram. She was unable to get that scheduled and came back to the emergency department. On exam she was nontoxic in appearance with stable vital signs. I heard a very soft systolic ejection murmur which sounds like a flow murmur. It's not noted in her previous visits and I discussed it with Dr. Reyes who agreed to see her promptly in his office. She was stable and her workup here was likewise negative. - Diagnoses Provider Diagnoses: Chest pain Discharge - Sign-Out/Discharge Documenting (check all that apply): Patient Departure Patient Received Moderate/Deep Sedation with Procedure: No - Discharge Plan Condition: Stable Disposition: HOME Referrals: Simba Reyes MD [Primary Care Provider] - Additional Instructions: Please follow up with Dr. Reyes TODAY. Return to the emergency department with any new or worsening symptoms. - Billing Disposition and Condition Condition: STABLE Disposition: Home - Attestation Statements Document Initiated by Scribe: Yes Documenting Scribe: Amelie Rahamn Provider For Whom Jeff is Documenting (Include Credential): Danis Campo MD. Scribe Attestation: Amelie Dominguez scribed for Danis Campo MD. on 09/10/18 at 2242. Scribe Documentation Reviewed: Yes Provider Attestation: The documentation as recorded by the Amelie aranda accurately reflects the service I personally performed and the decisions made by me, Danis Campo MD. Status of Scribe Document: Viewed
[2018-09-10 11:37] LABS: ABS Basophils 0 10^3/ul (0-0.2); ABS Eosinophils 0.1 10^3/ul (0-0.6); ABS Lymphocytes 1.5 10^3/ul (1.0-4.8); ABS Monocytes 0.6 10^3/ul (0-0.8); ABS Neutrophils 5.5 10^3/ul (1.5-7.7); ABS Nucleated RBC 0 10^3/ul; Eosinophil % 0.9 %; Hematocrit 41 % (35-47); Hemoglobin 13.7 g/dl (12.0-16.0); Lymphocyte % 19.9 %; Mean Corpuscular HGB Conc 33 g/dl (31-36); Mean Corpuscular Hemoglobin 31 pg (27-31); Mean Corpuscular Volume 92 fL (80-97); Mean Platelet Volume 7.2 fL (7.4-10.4); Nucleated Red Blood Cells % 0; Platelet Count 272 10^3/ul (150-450); Red Blood Count 4.47 10^6/ul (4.00-5.40); Red Cell Distribution Width 13 % (10.5-15); White Blood Count 7.7 10^3/ul (3.5-10.8)
[2018-09-10 11:56] LABS: ALT 11 U/L (7-52); AST 14 U/L (13-39); Albumin 4.1 g/dL (3.2-5.2); Albumin/Globulin Ratio 1.6 (1-3); Alkaline Phosphatase 45 U/L (34-104); Anion Gap 7 mmol/L (2-11); BUN/Creatinine Ratio 33.3 (8-20); Blood Urea Nitrogen 18 mg/dL (6-24); C Reactive Protein 4.88 mg/L (<8.01); CO2 Carbon Dioxide 25 mmol/L (22-32); Chloride 106 mmol/L (101-111); EGFR African American 160.4 (>60); EGFR Non-African American 132.6 (>60); Globulin 2.5 g/dL (2-4); Glucose 92 mg/dL (70-100); Potassium 4.1 mmol/L (3.5-5.0); Sodium 138 mmol/L (135-145); Total Protein 6.6 g/dL (6.4-8.9)
[2018-09-10 12:00] LABS: HCG Pregnancy < 0.60 mIU/mL
[2018-09-10 14:28] VITALS: BP 154/82
== END 2018-09-10 14:27 | disposition home or self-care (01) ==
LOC: ED 10:25
DX: R07.9 Chest pain, unspecified (principal); Z82.49 Family history of ischemic heart disease and other diseases of the circulatory system
CPT/HCPCS: 36415; 80053; 84484; 84702; 85025; 85379; 86140; 93005; 99283

== ENCOUNTER 2019-05-30 08:13 | Emergency (ER) | payer BC ==
[2019-05-30 08:21] VITALS: BP 138/84
--- NOTE | 2019-05-30 08:35 | UC ---
UC General HPI - HPI Summary HPI Summary: Patient is a 33yo female presenting with intermittent dull JASSO, sinus congestion , intermittent nausea and "feeling off" x1.5 weeks. Also notes low grade fever of 99.9 that began 3 days ago and lasted 2 days. Patient states fever resolved with advil and that JASSO responds to tylenol. Denies current nausea. Denies ear pain. Denies changes in vision. Denies sore throat and cough. Denies chest pain , SOB, and wheezing. Denies myalgia. Denies decreased appetite or fluid intake. Denies vomiting, diarrhea, and abdominal pain. Denies muscle weakness. Denies possibility of . Denies asthma or allergies. - History of Current Complaint Chief Complaint: UCGeneralIllness Stated Complaint: HEADACHE, AND FEVER Hx Obtained From: Patient Hx Last Menstrual Period: 05/26/19 Onset/Duration: Gradual Onset, Lasting Weeks Onset Severity: Mild Current Severity: Mild Pain Intensity: 3 - Allergy/Home Medications Allergies/Adverse Reactions: Allergies Allergy/AdvReac Type Severity Reaction Status Date / Time No Known Allergies Allergy Verified 05/30/19 08:20 Home Medications: Home Medications Ibuprofen 600 mg PO Q6HR 05/30/19 [History Confirmed 05/30/19] PMH/Surg Hx/FS Hx/Imm Hx GI/ History: Gastroesophageal Reflux - Surgical History Surgical History: None Surgery Procedure, Year, and Place: denies - Family History Known Family History: Positive: Cardiac Disease - Father of heart attack age 45 - alcoholic, smoker Negative: Hypertension, Diabetes - Social History Alcohol Use: Weekly Substance Use Type: None Smoking Status (MU): Never Smoked Tobacco - Immunization History Most Recent Influenza Vaccination: 2014 Most Recent Tetanus Shot: UTD Review of Systems All Other Systems Reviewed And Are Negative: Yes Constitutional: Positive: Fever. Negative: Chills, Fatigue Eyes: Positive: Negative ENT: Positive: Sinus Congestion. Negative: Sinus Pain/Tenderness Respiratory: Positive: Negative Cardiovascular: Positive: Negative Gastrointestinal: Positive: Nausea. Negative: Abdominal Pain, Vomiting, Diarrhea Motor: Positive: Negative Neurological: Positive: Headache Physical Exam Triage Information Reviewed: Yes Appearance: Well-Appearing, No Pain Distress, Well-Nourished Vital Signs: Initial Vital Signs Temp 98.9 F 05/30/19 08:18 Pulse 80 05/30/19 08:18 Resp 18 05/30/19 08:18 BP 138/84 05/30/19 08:18 Pulse Ox 100 05/30/19 08:18 Vital Signs Reviewed: Yes Eyes: Positive: Conjunctiva Clear ENT: Positive: Hearing grossly normal, Pharynx normal, Nasal congestion, TMs normal, Uvula midline. Negative: Sinus tenderness Neck exam: Normal Neck: Positive: Supple, Nontender, No Lymphadenopathy Respiratory Exam: Normal Respiratory: Positive: Lungs clear, Normal breath sounds, No respiratory distress, No accessory muscle use Cardiovascular Exam: Normal Cardiovascular: Positive: RRR Neurological: Positive: Alert, Muscle Tone Normal Psychological: Positive: Age Appropriate Behavior Course/Dx - Course Course Of Treatment: Discussed likely viral etiology of congestion. Instructed to continue with symptomatic treatment including mucines, flonase, and increased fluids. Instructed to follow up with pcp if symptoms persist. Patient voiced understanding and agreed with treatment plan. - Diagnoses Provider Diagnosis: Nasal congestion Discharge ED - Sign-Out/Discharge Documenting (check all that apply): Patient Departure All imaging exams completed and their final reports reviewed: No Studies - Discharge Plan Condition: Stable Disposition: HOME Patient Education Materials: Viral Syndrome (ED) Referrals: Simba Reyes MD [Primary Care Provider] - If Needed Additional Instructions: As discussed, your symptoms are most likely caused by a virus. You may take mucinex to help reduce your nasal congestion. You may also use flonase for symptomatic relief. You may continue to take ibuprofen as directed for pain relief. Get plenty of rest and fluids. Follow up with your primary care doctor if your symptoms worsen or do not resolve within 10 days. - Billing Disposition and Condition Condition: STABLE Disposition: Home
== END 2019-05-30 08:59 | disposition home or self-care (01) ==
LOC: UCEAST 08:13
DX: R09.81 Nasal congestion (principal); R51 Headache; R50.9 Fever, unspecified
CPT/HCPCS: 99211; G0463

== ENCOUNTER 2019-06-17 07:21 | Emergency (ER) | payer BC ==
--- NOTE | 2019-06-17 07:35 | ED ---
Abdominal Pain/Female - HPI Summary HPI Summary: Pt. is a 33 y.o female who presents to the ER for intermittent abdominal pain x 1 month. Pt. notes pain is typically to her right side/back and radiates to lower abd. Associated sxs of diarrhea. Denies associated fever, cough, N/V, constipation, dysuria, hematuria, vaginal discharge. Pt. denies past hx. Sxs are moderate in severity. No modifying factors. Pt. describes pain as dull and achy. - History of Current Complaint Chief Complaint: EDGeneral Stated Complaint: R SIDE PAIN PER PT Time Seen by Provider: 06/17/19 07:32 Hx Obtained From: Patient Hx Last Menstrual Period: 05/26/19 Pain Intensity: 0 Allergies/Adverse Reactions: Allergies Allergy/AdvReac Type Severity Reaction Status Date / Time No Known Allergies Allergy Verified 06/17/19 07:25 Home Medications: Home Medications ALPRAZolam [Alprazolam] 0.25 mg PO Q8H PRN 06/17/19 [History Confirmed 06/17/19] PMH/Surg Hx/FS Hx/Imm Hx Previously Healthy: Yes Endocrine/Hematology History: Denies: Hx Diabetes, Hx Thyroid Disease Cardiovascular History: Denies: Hx Hypertension Respiratory History: Reports: Other Respiratory Problems/Disorders - bronchitis about 8 wks ago Denies: Hx Asthma, Hx Chronic Obstructive Pulmonary Disease (COPD) GI History: Denies: Hx Ulcer History: Denies: Hx Kidney Stones, Hx Renal Disease - Surgical History Surgery Procedure, Year, and Place: denies Infectious Disease History: No Infectious Disease History: Denies: Hx Hepatitis, Hx Human Immunodeficiency Virus (HIV), History Other Infectious Disease, Traveled Outside the [place] in Last 30 Days - Family History Known Family History: Positive: Cardiac Disease - Father of heart attack age 45 - alcoholic, smoker Negative: Hypertension, Diabetes - Social History Alcohol Use: Weekly Hx Substance Use: No Substance Use Type: Reports: None Hx Tobacco Use: No Smoking Status (MU): Never Smoked Tobacco Review of Systems Constitutional: Negative Negative: Fever, Chills Eyes: Negative ENT: Negative Cardiovascular: Negative Negative: Chest Pain Respiratory: Negative Negative: Shortness Of Breath, Cough Positive: Abdominal Pain, Diarrhea. Negative: Vomiting, Nausea Positive: flank pain. Negative: burning, discharge Musculoskeletal: Negative Skin: Negative Neurological: Negative All Other Systems Reviewed And Are Negative: Yes Physical Exam Triage Information Reviewed: Yes Vital Signs On Initial Exam: Initial Vitals Temp Pulse Resp BP Pulse Ox 97.6 F 76 19 143/90 100 06/17/19 07:23 06/17/19 07:23 06/17/19 07:23 06/17/19 07:23 06/17/19 07:23 Vital Signs Reviewed: Yes Appearance: Positive: Well-Appearing - Pt. sitting up in bed in NAD. Pleasant. Skin: Positive: Warm, Dry Head/Face: Positive: Normal Head/Face Inspection Eyes: Positive: Normal, EOMI, GUCCI ENT: Positive: Pharynx normal, TMs normal Neck: Positive: Supple Respiratory/Lung Sounds: Positive: Clear to Auscultation, Breath Sounds Present. Negative: Rales, Rhonchi, Wheezes Cardiovascular: Positive: Normal, RRR Abdomen Description: Positive: Other: - Minimal right CVA tenderness. Abd. is soft with very mild RLQ and LLQ pain. No rebound or guarding. Neurological: Positive: Normal, CN Intact II-III Psychiatric: Positive: Affect/Mood Appropriate Procedures - Sedation Patient Received Moderate/Deep Sedation with Procedure: No Diagnostics - Vital Signs Vital Signs Temp Pulse Resp BP Pulse Ox 06/17/19 07:23 97.6 F 76 19 143/90 100 - Laboratory Result Diagrams: 06/17/19 07:43 06/17/19 07:43 Lab Statement: Any lab studies that have been ordered have been reviewed, and results considered in the medical decision making process. Abdominal Pain Fem Course/Dx - Course Course Of Treatment: Pt. presenting with intermittent abd. pain. She is afebrile with stable VS. Exam is fairly benign with minimal tenderness. Pain today 2-3/10. Will start with basic labs and u/a. Blood work unremarkable including normal WBC and CRP. Negative . U/A shows RBCs and WBCs. Negative bacteria and nitrates. U/S of kidney and pelvis ordered for further evaluation of potential ovarian cyst, urolithiasis. Ultrasounds negative per radiology. Unclear of etiology of abd. pain and intermittent diarrhea. Discussed stool culture but pt states she is unable to provide one. Recommend probiotic daily. To call pcp on thursday for close f.u for further evaluation. To return to er for severe pain, vomiting, fever or if concerned. Pt. understands and agrees with plan. - Diagnoses Differential Diagnosis: Positive: Appendicitis, Constipation, Ectopic , Irritable Bowel Syndrome, Ovarian Cyst, Pelvic Inflammatory Disease, , Renal Colic, Urinary Tract Infection Provider Diagnoses: Abdominal pain, Diarrhea Discharge ED - Sign-Out/Discharge Documenting (check all that apply): Patient Departure - Discharge Plan Condition: Good Disposition: HOME Patient Education Materials: Acute Diarrhea (ED), Abdominal Pain (ED) Referrals: Simba Reyes MD [Primary Care Provider] - Additional Instructions: Schedule a follow up appointment with your PCP Recommend taking an over the counter probiotic Will call if urine culture is positive Return to ER for fever, severe pain, vomiting, or if concerned - Billing Disposition and Condition Condition: GOOD Disposition: Home
[2019-06-17 07:50] LABS: ABS Basophils 0.1 10^3/ul (0-0.2); ABS Eosinophils 0.2 10^3/ul (0-0.6); ABS Lymphocytes 2.7 10^3/ul (1.0-4.8); ABS Monocytes 0.9 10^3/ul (0-0.8); ABS Neutrophils 5.7 10^3/ul (1.5-7.7); Eosinophil % 2.1 %; Hematocrit 39 % (35-47); Hemoglobin 13.4 g/dL (12.0-16.0); Mean Corpuscular HGB Conc 34 g/dL (31-36); Mean Corpuscular Hemoglobin 31 pg (27-31); Mean Corpuscular Volume 91 fL (80-97); Mean Platelet Volume 7.1 fL (7.4-10.4); Platelet Count 302 10^3/uL (150-450); Red Blood Count 4.36 10^6 /uL (3.70-4.87); Red Cell Distribution Width 13 % (10-15); White Blood Count 9.5 10^3/uL (3.5-10.8)
[2019-06-17 08:09] LABS: ALT 11 U/L (7-52); AST 13 U/L (13-39); Albumin 4.1 g/dL (3.2-5.2); Albumin/Globulin Ratio 1.8 (1-3); Alkaline Phosphatase 50 U/L (34-104); Anion Gap 8 mmol/L (2-11); BUN/Creatinine Ratio 22.6 (8-20); Blood Urea Nitrogen 14 mg/dL (6-24); C Reactive Protein 7.93 mg/L (<8.01); CO2 Carbon Dioxide 24 mmol/L (22-32); Calcium 9.1 mg/dL (8.6-10.3); Chloride 106 mmol/L (101-111); EGFR African American 135.9 (>60); EGFR Non-African American 112.3 (>60); Globulin 2.3 g/dL (2-4); Glucose 98 mg/dL (70-100); Sodium 138 mmol/L (135-145); Total Protein 6.4 g/dL (6.4-8.9)
[2019-06-17 08:14] LABS: HCG Pregnancy < 0.60 mIU/mL
[2019-06-17 08:16] LABS: Urine Appearance Cloudy; Urine Bilirubin Negative (Negative); Urine Blood 1+ (Negative); Urine Color Yellow; Urine Glucose Negative (Negative); Urine Ketones Negative (Negative); Urine Nitrite Negative (Negative); Urine Protein Negative (Negative); Urine Urobilinogen Negative (Negative)
[2019-06-17 08:17] LABS: Urine Bacteria Absent (Absent); Urine Red Blood Cell 2+(6-10/hpf) (Absent); Urine Squamous Epithelial Cell Present (Absent); Urine White Blood Cell 1+(6-10/hpf) (Absent)
[2019-06-17 10:08] VITALS: BP 131/73
== END 2019-06-17 10:05 | disposition home or self-care (01) ==
LOC: ED 07:21
DX: R10.9 Unspecified abdominal pain (principal); R19.7 Diarrhea, unspecified
CPT/HCPCS: 36415; 76775; 76830; 80053; 81003; 81015; 84702; 85025; 86140; 87086; 99283